=== PATIENT | male | born 1965 | race Caucasian/White ===

== ENCOUNTER 2020-08-11 22:52 | Emergency (ER) | payer OTHER ==
[~2020-08-11] VITALS: Ht 167.6 cm; Wt 61.8 kg
[2020-08-11] MEDS ORDERED: THIAMINE 100 MG TABLET PO ONE (23:15)
[2020-08-12 06:05] VITALS: BP 110/69
== END 2020-08-12 06:11 | disposition home or self-care (01) ==
LOC: EMS 22:52 → EDBD 22:52 → EMS 08-12 06:11
DX: F10.129 Alcohol abuse with intoxication, unspecified (principal); F17.210 Nicotine dependence, cigarettes, uncomplicated; Y90.8 Blood alcohol level of 240 mg/100 ml or more
CPT/HCPCS: 36415; 99285; G0480; 99283